=== PATIENT | female | born 1945 | race Caucasian/White ===

== ENCOUNTER 2024-12-14 09:46 | Day surgery (SDC) | payer MEDICARE, BC ==
[~2024-12-14 09:46] MED LIST: Sodium Chloride 0.9% 10 ML Syringe FLUSH PRN; Sodium Chloride 0.9% 250 ML IV SCH
[2024-12-14] MEDS: Lactated Ringers 1,000 ML IV SCH (10:34)
[2024-12-14] MEDS ORDERED: ePHEDrine 50 MG/ML SDV ONE (10:50)
[2024-12-14] MEDS ORDERED: Ondansetron 4 MG/2 ML SDV ONE (10:50)
[2024-12-14] MEDS ORDERED: Propofol 200 MG/20 ML SDV ONE (10:50)
[2024-12-14] MEDS ORDERED: Midazolam 1 MG/ML 2 ML SDV ONE (10:50)
[2024-12-14] MEDS ORDERED: fentaNYL 50 MCG/ML SDV ONE (10:50)
[2024-12-14] MEDS ORDERED: Lidocaine 2% with EPINEPHrine 1:100,000 20 ML MDV ONE (10:52)
[2024-12-14] MEDS: Povidone-Iodine 5% Sterile Ophth Soln 30 ML Bottle EYEBOTH ONE (11:02)
[2024-12-14] MEDS: Lidocaine 2% with EPINEPHrine 1:100,000 20 ML MDV INJECT SCH (11:02)
[2024-12-14] MEDS: Tetracaine HCl/PF 0.5% 4 ML Bottle EYEBOTH ONE (11:02)
[2024-12-14] MEDS ORDERED: Bacitracin Oint 1 GM U/D Packet TOP SCH (11:30)
== END 2024-12-14 12:35 | disposition home or self-care (01) ==
LOC: CC.SDS 09:46
PROVIDERS: ATTEND Ophthalmology
DX: H02.005 Unspecified entropion of left lower eyelid (principal); I10 Essential (primary) hypertension; J44.9 Chronic obstructive pulmonary disease, unspecified; E78.5 Hyperlipidemia, unspecified; Z79.899 Other long term (current) drug therapy
CPT/HCPCS: 00103; 99100; J2250; J2405; J2704; J3010; J3490; J7120